=== PATIENT | male | born 1955 | race Hispanic/Latino ===

== ENCOUNTER 2017-09-18 16:54 | Emergency (ER) | payer MEDICARE ==
[~2017-09-18] VITALS: Ht 185.4 cm; Wt 120.2 kg
[~2017-09-18 16:54] MED LIST: BLOOD PRESSURE MED PO; CRESTOR10 MG PO; NORCO 10-325 T1 EACH PO; [UNRECOGNIZED DRUG - OTHER] PO
[2017-09-18] MEDS ORDERED: ONDANSETRON HCL 4 MG ORAL DISINTEGRATING TAB PO ONE (20:00)
[2017-09-18] MEDS ORDERED: HYDROCODONE/APAP 10MG-325MG TAB PO ONE (20:00)
[2017-09-18] MEDS ORDERED: TETANUS/DIPHTHERIA TOX ADULT 0.5 ML SYR IM STA (20:27)
[2017-09-18] MEDS ORDERED: LIDOCAINE HCL 1% LOCAL INJ 20 ML VIAL INJ STA (20:27)
[2017-09-18] MEDS ORDERED: MORPHINE SULFATE 2 MG/ML SYR IM STA (20:29)
[2017-09-18] MEDS ORDERED: CEFAZOLIN SOD 1 GM in WATER STERILE 10ML VIAL 10 ML IV SCH (20:30)
--- NOTE | 2017-09-18 20:43 | Diagnostic Imaging Report ---
WRIST COMPLETE LEFT - 3 views HISTORY: Pain. COMPARISON: None available. FINDINGS: Bones: No acute displaced fracture. Osseous alignment is within normal limits. Joints: Mild to moderate joint space narrowing of the radiocarpal joint. Soft tissues: The soft tissues appear unremarkable. IMPRESSION: Mild to moderate joint space narrowing of the radiocarpal joint. Otherwise, no acute abnormalities. Signed by: Dr. Eulogio Cortes M.D. on 09/18/2017 8:40 PM
--- NOTE | 2017-09-18 20:44 | Diagnostic Imaging Report ---
LOWER LEG RIGHT - 2 views HISTORY: Pain. Cut on the leg COMPARISON: None available. FINDINGS: Bones: No acute displaced fracture. Osseous alignment is within normal limits. Joints: The joint spaces are well-maintained. Soft tissues: Soft tissue defect along the anterior aspect of the mid right lower leg. There is associated soft tissue edema and subcutaneous gas. No radiopaque foreign bodies. IMPRESSION: Soft tissue laceration with associated soft tissue edema and subcutaneous gas. No osseous abnormalities. No radiopaque foreign bodies. Signed by: Dr. Eulogio Cortes M.D. on 09/18/2017 8:41 PM
[2017-09-18] MEDS ORDERED: CEFAZOLIN SOD 1 GM VIAL IV ONE (20:50)
--- NOTE | 2017-09-18 21:21 | Diagnostic Imaging Report ---
Exams: Head and cervical spine CTs without IV contrast History: Trauma, fall Comparison studies: None Technique: Axial images were obtained from the brain and cervical spine. Coronal and sagittal images reconstructed from the axial data. Intravenous contrast: None Findings: Head CT: Scalp: No abnormalities. Bones: No fractures, blastic or lytic lesions. Extra-axial spaces: No masses. No fluid collections. Brain sulci: Appropriate for age. Ventricles: Normal in size and configuration. No hydrocephalus. Parenchyma: No mass, acute hemorrhage or acute or chronic cortical vascular insults. A few scattered hypodensities in the supratentorial white matter are nonspecific but most compatible with chronic small vessel ischemic changes. Sellar/suprasellar region: No abnormalities. Craniocervical junction: The foramen magnum is patent. No Chiari one malformation. Cervical spine CT: Fractures: None. Soft tissues: No gross acute abnormalities. Atlantoaxial articulation: Intact. Alignment: Straightened cervical curvature may be positional. No subluxations. Cervicomedullary junction: No abnormalities. The foramen magnum is patent. Vertebrae: No infection or neoplasm. Degenerative changes: C2-C3: Mildly degenerated disc. Patent canal and foramina. C3-C4: Mildly degenerated disc. Mild canal stenosis due to a disc osteophyte complex. Moderate bilateral foraminal stenosis (right greater than left) due to uncovertebral arthrosis. C4-C5: Mildly degenerated disc. Mild right foraminal stenosis due to uncovertebral and facet arthrosis. Patent canal and left foramen. C5-C6: Moderately degenerated disc. At least mild canal stenosis due to a disc osteophyte complex. Severe left and moderate right foraminal stenosis due to uncovertebral and facet arthrosis. C6-C7: Moderately degenerated disc. Disc osteophyte complex asymmetric to the right, uncovertebral arthrosis and facet arthrosis without least mild canal stenosis, severe right foraminal stenosis and moderate left foraminal stenosis. C7-T1: Mildly degenerated disc. Mild left foraminal stenosis due to uncovertebral facet arthrosis patent canal and right foramen. Incidental findings: Chronic depressed left lamina papyracea fracture/deformity Atherosclerotic calcifications in the cervical carotid bulbs and in the carotid siphons. Small blebs at the lung apices. Focal extraluminal gas at the right tracheoesophageal junction at the level of the thoracic inlet is compatible with a small tracheal or less likely esophageal diverticulum. IMPRESSION: Head CT: 1. No acute abnormalities.. 2. Mild supratentorial chronic microvascular ischemic changes. Cervical spine CT: 1. No cervical spine fracture or subluxation. 2. Multilevel degenerative changes as described. 3. Cannot evaluate ligament, spinal cord or vascular abnormalities on the basis of this examination. Signed by: Dr. Ezra Colon M.D. on 09/18/2017 9:18 PM
[2017-09-18] MEDS ORDERED: BACITRACIN ZINC 0.9GM TP ONE (22:04)
[2017-09-18 22:26] VITALS: BP 147/89
== END 2017-09-18 22:31 | disposition home or self-care (01) ==
LOC: ER 16:54
DX: S81.811A Laceration without foreign body, right lower leg, initial encounter (principal); S00.31XA Abrasion of nose, initial encounter; S16.1XXA Strain of muscle, fascia and tendon at neck level, initial encounter; I10 Essential (primary) hypertension; F17.210 Nicotine dependence, cigarettes, uncomplicated; M25.532 Pain in left wrist; E78.5 Hyperlipidemia, unspecified; J44.9 Chronic obstructive pulmonary disease, unspecified; W01.0XXA Fall on same level from slipping, tripping and stumbling without subsequent striking against object, initial encounter; Y93.01 Activity, walking, marching and hiking; Y92.89 Other specified places as the place of occurrence of the external cause; W22.8XXA Striking against or struck by other objects, initial encounter
CPT/HCPCS: 13121; 13122 ×2; 29130; 70450; 72125; 73110; 73590; 99284; J0690; J2001; J2270

== ENCOUNTER 2022-12-13 18:20 | Emergency (ER) | payer MEDICARE, OTHER ==
[~2022-12-13] VITALS: Ht 185.4 cm; Wt 120.2 kg
[2022-12-13 18:58] VITALS: O2SAT 100
[2022-12-13] MEDS ORDERED: DOXYCYCLINE HY100 MG PO (19:02)
== END 2022-12-13 19:10 | disposition home or self-care (01) ==
LOC: ER 18:39
DX: S81.811A Laceration without foreign body, right lower leg, initial encounter (principal); L08.9 Local infection of the skin and subcutaneous tissue, unspecified; W22.09XA Striking against other stationary object, initial encounter; Y92.89 Other specified places as the place of occurrence of the external cause
CPT/HCPCS: 99282